=== PATIENT | female | born 1955 | race Caucasian/White ===

== ENCOUNTER → 2024-12-15 | Outpatient (CLI) | payer MEDICARE, SELFPAY ==
--- NOTE | 2024-12-15 15:44 | XR_ITS ---
Examination: Shoulder, right, 3 views Technique: Shoulder AP internal rotation, AP external rotation, Y view shoulder, 3 views Exam date and time : December,, 5048 hours INDICATIONS: Right shoulder pain beginning 8 months ago. FINDINGS: Moderate osteopenia. Moderate narrowing glenohumeral joint No shoulder fracture or dislocation IMPRESSION: Moderate narrowing glenohumeral joint
== END | disposition home or self-care (01) ==
LOC: CDIM 15:37
PROVIDERS: PCP Internal Medicine
DX: M25.811 Other specified joint disorders, right shoulder (principal)
CPT/HCPCS: 73030